=== PATIENT | female | born 1985 | race Two or more races ===

== ENCOUNTER 2021-01-08 08:47 | Emergency (ER) | payer MEDICAID ==
[~2021-01-08] VITALS: Ht 157.5 cm; Wt 66.7 kg
[~2021-01-08 08:47] MED LIST: [UNRECOGNIZED DRUG - OTHER]; albuterol
[2021-01-08 09:25] VITALS: BP 127/71
== END 2021-01-08 10:33 | disposition home or self-care (01) ==
LOC: ER 08:47
DX: J06.9 Acute upper respiratory infection, unspecified (principal); B97.89 Other viral agents as the cause of diseases classified elsewhere; H66.91 Otitis media, unspecified, right ear; J45.909 Unspecified asthma, uncomplicated; Z79.899 Other long term (current) drug therapy; Z88.0 Allergy status to penicillin; Z20.822 Contact with and (suspected) exposure to COVID-19
CPT/HCPCS: 36415; 87426